=== PATIENT | female | born 1990 | race Caucasian/White ===

== ENCOUNTER 2023-05-12 19:10 | Day surgery (SDC) | payer MEDICAID ==
[2023-05-12 19:48] LABS: BASOPHILS ABSOLUTE AUTO 0.1 K/mm3 (0.0-0.2); BASOPHILS PERCENT AUTO 0.3 % (0.0-1.0); EOSINOPHILS PERCENT AUTO 0.1 % (0.0-6.0); HEMATOCRIT 42.3 % (37.0-47.0); HEMOGLOBIN 14.3 gm/dl (12.0-16.0); IMMATURE GRAN ABSOLUTE AUTO 0.08 K/mm3 (0.00-0.05); IMMATURE GRAN PERCENT AUTO 0.4 % (0.0-0.4); LYMPHOCYTES ABSOLUTE AUTO 1.4 K/mm3 (1.0-4.8); LYMPHOCYTES PERCENT AUTO 7.1 % (24.0-44.0); MEAN CORPUSCULAR HEMOGLOBIN 30.1 pg (28.0-32.0); MEAN CORPUSCULAR HGB CONC 33.8 g/dl (32.0-36.0); MEAN CORPUSCULAR VOLUME 89.1 fl (83.0-99.0); MEAN PLATELET VOLUME 10.2 fl (9.4-12.3); MONOCYTES ABSOLUTE AUTO 0.9 K/mm3 (0.0-0.8); MONOCYTES PERCENT AUTO 4.6 % (0.0-8.0); NEUTROPHILS ABSOLUTE AUTO 17.3 K/mm3 (1.8-7.7); NEUTROPHILS PERCENT AUTO 87.5 % (41.0-71.0); PLATELET COUNT,PLT 175 K/mm3 (150-400); RED BLOOD CELL COUNT 4.75 M/mm3 (4.10-5.30); WHITE BLOOD CELL COUNT,WBC 19.76 K/mm3 (3.9-11.3)
[2023-05-12] MEDS: Sodium Chloride 0.9% 10 ML Syringe FLUSH ONE (19:50)
[2023-05-12] MEDS: Ondansetron 4 MG/2 ML SDV IVPUSH ONE (19:50)
[2023-05-12] MEDS: Sodium Chloride 0.9% 1,000 ML IV STA (19:50)
[2023-05-12] MEDS: HYDROmorphone 0.5 MG/0.5 ML Syringe IVPUSH ONE (19:51)
[2023-05-12 20:10] LABS: A/G RATIO 1.3 (1-2); ALANINE AMINOTRANSFERASE,ALT 22 U/L (14-59); ALBUMIN 4.2 g/dl (3.4-5.0); ALKALINE PHOSPHATASE 55 U/L (46-116); ASPARTATE AMNIOTRANSFERASE,AST 11 U/L (15-37); BILIRUBIN TOTAL 0.6 mg/dL (0.2-1.0); BLOOD UREA NITROGEN,BUN 7 mg/dL (7-18); BUN/CREATININE RATIO 8.8 (14-18); C-REACTIVE PROTEIN <0.2 mg/dL (<1.0); CALCIUM 9.4 mg/dL (8.5-10.1); CARBON DIOXIDE,CO2 26 mEq/L (21-32); CHLORIDE,CL 102 mEq/L (98-107); CREATININE 0.8 mg/dL (0.55-1.02); EST CRCL DRUG DOSING (CG) 92.76 mL/min; ESTIMATED GFR 99 mL/min (>60); GLUCOSE RANDOM 118 mg/dL (70-99); PROTEIN TOTAL,TP 7.5 g/dl (6.4-8.2); SODIUM,NA 139 mEq/L (136-145)
[2023-05-12 20:15] LABS: APPEARANCE,URINE CLEAR (Clear); BILIRUBIN,URINE NEGATIVE (Negative); COLOR,URINE LIGHT YELLOW (Yellow); GLUCOSE,URINE NEGATIVE (Negative); KETONES,URINE NEGATIVE (Negative); LEUKOCYTE ESTERASE,URINE NEGATIVE (Negative); NITRITE,URINE NEGATIVE (Negative); OCCULT BLOOD,URINE TRACE-INTACT (Negative); PH,URINE 7.5 (5.0-8.0); PROTEIN,URINE NEGATIVE (Negative); UROBILINOGEN,URINE 0.2 (0.2-1.0)
[2023-05-12 20:32] LABS: BACTERIA,URINE FEW /hpf (FEW); MUCUS,URINE FEW /hpf (FEW); SQUAMOUS EPITHELIAL CELLS,UR 0-5 /hpf (0-5); WBC,URINE 0-5 /hpf (0-5)
[2023-05-12] MEDS: Iopamidol 612 MG/ML 100 ML Bottle IVPUSH ONE (20:45)
[2023-05-12] MEDS: Sodium Chloride 0.9% 10 ML Syringe FLUSH PRN (20:45)
[2023-05-12] MEDS: Piperacillin/Tazobactam 4.5 GM in Sodium Chloride 0.9% 100 ML IV ONE (21:03)
[2023-05-12] MEDS: Acetaminophen 325 MG Tab PO PRN (22:03)
[2023-05-12] MEDS ORDERED: Succinylcholine 200 MG/10 ML MDV ONE (22:12)
[2023-05-12] MEDS ORDERED: Rocuronium 50 MG/5 ML Vial ONE (22:12)
[2023-05-12] MEDS ORDERED: Lidocaine 1% 6 ML ONE (22:12)
[2023-05-12] MEDS ORDERED: Midazolam 1 MG/ML 2 ML SDV ONE (22:12)
[2023-05-12] MEDS ORDERED: fentaNYL 250 MCG/5 ML SDV ONE (22:13)
[2023-05-12] MEDS ORDERED: Propofol 200 MG/20 ML SDV ONE (22:15)
[2023-05-12] MEDS ORDERED: Ondansetron 4 MG/2 ML SDV ONE (22:50)
[2023-05-12] MEDS ORDERED: dexmedeTOMIDine HCl 200 MCG/2 ML SDV ONE (22:51)
[2023-05-12] MEDS: Ondansetron 4 MG/2 ML SDV IVPUSH PRN (23:03)
[2023-05-12] MEDS ORDERED: Ketorolac 30 MG/ML SDV ONE (23:04)
[2023-05-12] MEDS ORDERED: Neostigmine Methylsulfate 10 MG/10 ML MDV ONE (23:09)
[2023-05-12] MEDS: Bupivacaine 0.5% 30 ML SDV ONE (23:10)
[2023-05-12] MEDS: Lidocaine 1% 30 ML SDV ONE (23:10)
[2023-05-12] MEDS ORDERED: fentaNYL 100 MCG/2 ML SDV IVPUSH PRN (23:10)
[2023-05-12] MEDS ORDERED: HYDROmorphone 0.5 MG/0.5 ML Syringe IVPUSH PRN (23:10)
[2023-05-12] MEDS: EPINEPHrine 1 MG/ML SDV ONE (23:10)
[2023-05-13] MEDS: oxyCODONE 5 MG Tab PO PRN (00:35)
[2023-05-13] MEDS ORDERED: Ibuprofen 600 MG Tab PO PRN (05:00)
== END 2023-05-13 08:13 | disposition home or self-care (01) ==
LOC: JD.ED 19:10 → JD.SDS 21:14 → JD.MS 05-13 00:31 → JD.SDS 05-13 08:13
PROVIDERS: ATTEND Student in an Organized Health Care Education/Training Program
DX: K35.33 Acute appendicitis with perforation, localized peritonitis, and gangrene, with abscess (principal); I10 Essential (primary) hypertension; F17.210 Nicotine dependence, cigarettes, uncomplicated
CPT/HCPCS: 36415; 44970; 74177; 80053; 81001; 81025; 85025; 86140; 86850; 86900; 86901; A9270; J0171; J0330; J0665; J1170; J1885; J2250; J2405; J2543; J2704; J2710; J3010; J3490; J7030; Q9967; 00840; 99140